=== PATIENT | female | born 1995 | race Hispanic/Latino ===

== ENCOUNTER 2019-01-23 18:55 | Emergency (ER) | payer OTHER ==
[2019-01-23] MEDS ORDERED: LIDOCAINE 1% MPF 5 ML VIAL ONE (19:42)
--- NOTE | 2019-01-23 20:04 | EDPHYS ---
Physician Documentation [facility] Name: Elizabeth Villanueva Age: 23 yrs Sex: Female : 1995 Arrival Date: 01/23/2019 Time: 18:59 Bed 15 Private MD: ED Physician Christian Salas HPI: 01/23 19:29 This 23 yrs old Female presents to ER via Ambulatory with complaints of pkl Vaginal stitches from episotomy opened.. 19:29 The patient presents with Patient had episiotomy done for her vaginal delivery on pkl 12/17/18. On the follow up visit with her OB on 01/19/19 , she was told the episiotomy had re-opened. Her OB re-sutured the wound with a few sutures. Patient noticed some of the sutures re-opened yesterday.. 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 ae4 Historical: - Allergies: 19:18 No Known Allergies; ea - Home Meds: 19:18 None [Active]; ea - PMHx: 19:18 None; ea - PSHx: 19:18 None; ea - Immunization history:: Adult Immunizations up to date. - Social history:: Smoking status: Patient/guardian denies using tobacco. - Ebola Screening: : No symptoms or risks identified at this time. ROS: 19:29 Positive for Episiotomy wound re-opened.. pkl 19:29 Eyes: Negative for injury, pain, redness, and discharge, ENT: Negative for injury, pain, and discharge, Neck: Negative for injury, pain, and swelling, Cardiovascular: Negative for chest pain, palpitations, and edema, Respiratory: Negative for shortness of breath, cough, wheezing, and pleuritic chest pain, Abdomen/GI: Negative for abdominal pain, nausea, vomiting, diarrhea, and constipation, Back: Negative for injury and pain. 19:29 MS/extremity: Negative for acute changes. 19:29 Skin: Negative for rash. 19:29 Neuro: Negative for altered mental status. Exam: 19:29 Head/Face: Normocephalic, atraumatic. Eyes: Pupils equal round and reactive to light, pkl extra-ocular motions intact. Lids and lashes normal. Conjunctiva and sclera are non-icteric and not injected. Cornea within normal limits. Periorbital areas with no swelling, redness, or edema. ENT: Nares patent. No nasal discharge, no septal abnormalities noted. Tympanic membranes are normal and external auditory canals are clear. Oropharynx with no redness, swelling, or masses, exudates, or evidence of obstruction, uvula midline. Mucous membranes moist. Neck: Trachea midline, no thyromegaly or masses palpated, and no cervical lymphadenopathy. Supple, full range of motion without nuchal rigidity, or vertebral point tenderness. No Meningismus. Chest/axilla: Normal chest wall appearance and motion. Nontender with no deformity. No lesions are appreciated. Cardiovascular: Regular rate and rhythm with a normal S1 and S2. No gallops, murmurs, or rubs. Normal PMI, no JVD. No pulse deficits. Respiratory: Lungs have equal breath sounds bilaterally, clear to auscultation and percussion. No rales, rhonchi or wheezes noted. No increased work of breathing, no retractions or nasal flaring. Abdomen/GI: Soft, non-tender, with normal bowel sounds. No distension or tympany. No guarding or rebound. No evidence of tenderness throughout. Back: No spinal tenderness. No costovertebral tenderness. Full range of motion. Skin: Warm, dry with normal turgor. Normal color with no rashes, no lesions, and no evidence of cellulitis. MS/ Extremity: Pulses equal, no cyanosis. Neurovascular intact. Full, normal range of motion. Neuro: Awake and alert, GCS 15, oriented to person, place, time, and situation. Cranial nerves II-XII grossly intact. Motor strength 5/5 in all extremities. Sensory grossly intact. Cerebellar exam normal. Normal gait. 19:29 : episiotomy wound re-opened.. Vital Signs: 19:05 BP 132 / 93; Pulse 93; Resp 18; Temp 99.5(O); Pulse Ox 100% on R/A; Weight 67.13 kg; ea Height 5 ft. 2 in. (157.48 cm); 20:44 BP 103 / 62; Pulse 77; Resp 16; Pulse Ox 100% on R/A; ae4 19:05 Body Mass Index 27.07 (67.13 kg, 157.48 cm) ea Procedures: 19:29 Episiotomy wound closed with 4-0 chromic catgut ( 3 sutures ). pkl MDM: 19:09 Patient medically screened. pkl 19:29 ED course: Patient advised to follow up with her OB this week. Patient understood pkl instructions. 20:05 Data reviewed: vital signs, nurses notes. pkl Administered Medications: 19:55 Drug: Lidocaine (1 %) 1 application {Note: Administered by to right vaginal ae4 labia..} Volume: 5 ml; Route: Infiltration; 20:40 Follow up: Response: No adverse reaction ae4 Disposition: 01/23/19 20:04 Discharged to Home. Impression: Episiotomy wound re-sutured. - Condition is Stable. - Medication Reconciliation Form, Thank You Letter, Antibiotic Education, Prescription Opioid Use form. - Family Work Release (01/23/19 20:53). am2 - Follow up: Private Physician; When: 2 - 3 days; Reason: Re-evaluation by your physician. - Problem is new. - Symptoms have improved. Signatures: Christian Salas MD MD pkl Grazyna Galeana RN RN Sami Guadarrama RN RN ae4 Opal Hale am2 Corrections: (The following items were deleted from the chart) 20:48 20:04 01/23/2019 20:04 Discharged to Home. Impression: Episiotomy wound re-sutured. ae4 Condition is Stable. Forms are Medication Reconciliation Form, Thank You Letter, Antibiotic Education, Prescription Opioid Use. Follow up: Private Physician; When: 2 - 3 days; Reason: Re-evaluation by your physician. Problem is new. Symptoms have improved. pkl
--- NOTE | 2019-01-23 20:04 | ER ---
Nurse's Notes [facility] Name: Elizabeth Villanueva Age: 23 yrs Sex: Female : 1995 Arrival Date: 01/23/2019 Time: 18:59 Bed 15 Private MD: Diagnosis: Episiotomy wound re-sutured Presentation: 01/23 19:05 Presenting complaint: Patient states: Reports her episiotomy came open today, pt ea reports she had it re sutured at her OB on Wednesday and she noticed the stitches came undone today. Transition of care: patient was not received from another setting of care. Onset of symptoms was January 23, 2019. Risk Assessment: Do you want to hurt yourself or someone else? Patient reports no desire to harm self or others. Initial Sepsis Screen: Does the patient meet any 2 criteria? HR > 90 bpm. Does the patient have a suspected source of infection? No. Patient's initial sepsis screen is negative. Care prior to arrival: None. 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 ae4 Historical: - Allergies: 19:18 No Known Allergies; ea - Home Meds: 19:18 None [Active]; ea - PMHx: 19:18 None; ea - PSHx: 19:18 None; ea - Immunization history:: Adult Immunizations up to date. - Social history:: Smoking status: Patient/guardian denies using tobacco. - Ebola Screening: : No symptoms or risks identified at this time. Screenin:17 Abuse screen: Denies threats or abuse. Nutritional screening: No deficits noted. ea Tuberculosis screening: No symptoms or risk factors identified. Fall Risk None identified. Assessment: 19:10 General: Appears in no apparent distress. uncomfortable, Behavior is cooperative, ae4 appropriate for age, anxious. Pain: Complains of pain in right labia majora and right labia minora. Neuro: Level of Consciousness is awake, alert, obeys commands, Oriented to person, place, time, situation, Appropriate for age. Cardiovascular: Patient's skin is warm and dry. Respiratory: Airway is patent Respiratory effort is even, unlabored, Respiratory pattern is regular, symmetrical. GI: Abdomen is round non-distended. : Blood noted on labia 2 stitches noted to right labia, right labia with small tear approximately 4 cm in length. EENT: No signs and/or symptoms were reported regarding the EENT system. Derm: Skin is pink, warm \T\ dry. Musculoskeletal: No signs and/or symptoms reported regarding the musculoskeletal system. 20:00 Reassessment: Patient appears in no apparent distress at this time. Patient states ae4 feeling better. Vital Signs: 19:05 BP 132 / 93; Pulse 93; Resp 18; Temp 99.5(O); Pulse Ox 100% on R/A; Weight 67.13 kg; ea Height 5 ft. 2 in. (157.48 cm); 20:44 BP 103 / 62; Pulse 77; Resp 16; Pulse Ox 100% on R/A; ae4 19:05 Body Mass Index 27.07 (67.13 kg, 157.48 cm) ea ED Course: 18:59 Patient arrived in ED. mr 19:01 Sami Cunningham, YONI is Primary Nurse. ae4 19:05 Arm band placed on right wrist. Patient placed in an exam room, on a stretcher, on ea pulse oximetry. 19:09 Christian Salas MD is Attending Physician. pkl 19:10 Placed in gown. Bed in low position. Call light in reach. Side rails up X 1. Adult w/ ae4 patient. Pulse ox on. NIBP on. Warm blanket given. 19:17 Triage completed. ea 19:55 Assist provider with pelvic exam: Set up pelvic tray. Performed by Christian Salas MD Served as ae4 auto adjudication specialist for laceration repair to right vaginal labia. 20:44 Patient did not have IV access during this emergency room visit. ae4 Administered Medications: 19:55 Drug: Lidocaine (1 %) 1 application {Note: Administered by to right vaginal ae4 labia..} Volume: 5 ml; Route: Infiltration; 20:40 Follow up: Response: No adverse reaction ae4 Outcome: 20:04 Discharge ordered by . pkl 20:40 Discharged to home ae4 20:40 Condition: stable 20:43 Discharge instructions given to patient, significant other, Instructed on discharge ae4 instructions, follow up and referral plans. Demonstrated understanding of instructions. 20:48 Patient left the ED. ae4 Signatures: Christian Salas MD MD pkl Rivera Terra mr Grazyna Galeana RN RN Sami Guadarrama RN RN ae4
== END 2019-01-23 20:48 | disposition home or self-care (01) ==
LOC: ER 18:55
PROC: 0WQNXZZ Repair Female Perineum, External Approach (ICD-10-PCS; principal; 2019-01-23)
DX: O90.1 Disruption of perineal obstetric wound (principal)
CPT/HCPCS: 99283